=== PATIENT | male | born 1990 | race Hispanic/Latino ===

== ENCOUNTER 2024-10-26 18:06 | Emergency (ER) | payer SELFPAY ==
[2024-10-26 19:31] LABS: Absolute Lymphocytes (CBC) 1.6 K/uL (0.7-4.9); Absolute Monocytes 0.4 K/uL (0.1-1.3); Absolute Neutrophil 8.4 K/uL (1.8-8.0); Basophils % 0.2 % (0-1.3); Eosinophils % 0.3 % (0-4.4); Hematocrit 43.6 % (39.6-49.0); Hemoglobin 15.5 g/dL (13.6-17.9); Lymphocytes % 15.2 % (15.3-44.8); MCH 30.2 pg (27.0-35.0); MCHC 35.5 g/dL (32.0-36.0); MCV 85.1 fL (80-100); Monocytes % 3.9 % (3.3-12.3); Neutrophils % 80.4 % (41.7-73.7); Nucleated Red Blood Cells % 0.1 % (0-0); Platelets 355 thou/uL (152-406); RBC Red Blood Cell Count 5.12 M/uL (4.33-5.43); Red Cell Distribution Width 12.6 % (12.1-15.2)
[2024-10-26 19:33] LABS: Calcium Oxalate Crystals- Ur Few /HPF (None Seen); Specific Gravity 1.029 (1.005-1.030); Sqamous Epithelial <5 /HPF (None Seen); Urine Bacteria None Seen /HPF (<20); Urine Bilirubin NEGATIVE (Negative); Urine Blood 2+ (Negative); Urine Clarity Turbid (Clear); Urine Color Yellow (Yellow); Urine Culture Reflex Order NOT NEEDED; Urine Glucose NEGATIVE (Negative); Urine Ketones NEGATIVE (Negative); Urine Microscopic Reflex YN ORDER UMIC; Urine Mucus 1+ /HPF (None Seen); Urine Nitrite NEGATIVE (Negative); Urine Protein 1+ (Negative); Urine RBC 21-50 /HPF (None Seen); Urine Urobilinogen Normal (Normal); Urine WBC <5 /HPF (<5); Urine Yeast (Budding) Trace /HPF (None Seen)
[2024-10-26] MEDS ORDERED: MORPHINE 4 MG/ML SYR ONE (19:38)
[2024-10-26] MEDS ORDERED: NA CHLORIDE 0.9% 1,000 ML ONE (19:38)
[2024-10-26] MEDS ORDERED: METOCLOPRAMIDE 10 MG/2mL INJ ONE (19:38)
[2024-10-26 19:47] LABS: Albumin 3.6 g/dL (3.4-5.0); Albumin/Globulin Ratio 0.8 (1.1-1.8); Anion Gap 11.5 mEq/L (5.0-15.0); Bilirubin Total 0.5 mg/dL (0.2-1.0); Globulin 4.5 g/dL (2.3-3.5); Potassium 3.5 mEq/L (3.5-5.1); Protein, Total 8.1 g/dL (6.4-8.2)
--- NOTE | 2024-10-26 21:18 | RAD REPORT ---
EXAMINATION: CT ABDOMEN AND PELVIS WITHOUT CONTRAST CLINICAL INDICATION: Male, 34 years old.right flank pain TECHNIQUE: CT abdomen and pelvis was performed, without IV contrast, as per department protocol. Axia l, sagittal and coronal reconstructions were obtained. One or more of the following dose reduction techniques were used: Automated exposure control, adjustment of the mA and/or kV according to the pat ient size, and/or iterative reconstruction. Unless otherwise specified, incidental findings do not require dedicated imaging follow-up. [id number]. IV CONTRAST: Not administered. COMPARISON: None FINDINGS: The lack of intravenous contrast limits the sensitivity of this exam for evaluation of solid visceral organs, vascular structures, and retroperitoneum. LOWER CHEST: No acute process identified.No significant pericardial effusion. UPPER GI: No significant abnormality. LIVER: Hepatic steatosis, but otherwise unremarkable. GALLBLADDER/BILE DUCTS: No biliary ductal dilatation.? PANCREAS: No mass, ductal dilation, or luke-pancreatic fluid. SPLEEN: Unremarkable. ADRENALS: No adrenal masses. KIDNEYS AND URETERS: Horseshoe kidney with mild right-sided hydronephrosis of the right renal moiety. A 2 mm stone is present at the right UVJ.No suspicious renal masses within the limitations of a noncontrast CT. ABDOMINAL AORTA AND OTHER VESSELS: Normal caliber aorta and IVC. PERITONEUM: No abnormal free fluid. No free air. LYMPH NODES: No pathologic lymphadenopathy. ABDOMINAL WALL: Unremarkable SMALL BOWEL/COLON: Small bowel has normal course and caliber. No colonic wall thickening or pericolon ic inflammatory changes.Normal appendix. URINARY BLADDER: Underdistended but grossly unremarkable. REPRODUCTIVE ORGANS: No pathologic process. MUSCULOSKELETAL: No acute or suspicious osseous abnormality. ADDITIONAL FINDINGS: None. IMPRESSION: Horseshoe kidney with mild right-sided hydronephrosis of the right renal moiety secondary to a 2 mm s tone at the right UVJ.
--- NOTE | 2024-10-26 21:49 | EDPHYS ---
Physician Documentation [facility] Name: Joss Urbina Jr Age: 34 yrs Sex: Male : 1990 Arrival Date: 10/26/2024 Time: 18:06 Bed DX1 Private MD: ED Physician Isac Neely HPI: 10/26 18:45 This 34 yrs old Male presents to ER via Ambulatory with complaints of cp Vomiting, Flank Pain. 18:45 The patient presents with pain that is acute, with no known mechanism of injury. The cp symptoms are located in the right flank. The pain radiates to the right testicle. Onset: The symptoms/episode began/occurred suddenly, 2 hour(s) ago. Associated signs and symptoms: Pertinent positives: abdominal pain, nausea, Pertinent negatives: chest pain, constipation, dysuria, fever, active vomiting. Possible causes: kidney stone. Historical: - Allergies: 18:32 No Known Allergies; db - PMHx: 18:32 None; db - Immunization history:: Adult Immunizations unknown. - Infectious Disease History:: Denies. - Social history:: Smoking status: Patient denies any tobacco usage or history of. ROS: 18:50 Constitutional: Negative for body aches, chills, fever, cp 18:50 Eyes: Negative for injury, pain, redness, and discharge, cp 18:50 ENT: Negative for drainage from ear(s), ear pain, sore throat, difficulty swallowing, difficulty handling secretions, 18:50 Cardiovascular: Negative for chest pain, edema, palpitations, 18:50 Respiratory: Negative for cough, shortness of breath, wheezing, 18:50 Abdomen/GI: Positive for abdominal pain, nausea, Negative for diarrhea, constipation, active vomiting, 18:50 Back: Positive for flank pain, on the right, 18:50 : Negative for injury or acute deformity, difficulty urinating, 18:50 Neuro: Negative for altered mental status, headache, numbness, weakness, 18:50 All other systems are negative, Exam: 18:55 Constitutional: The patient appears in no acute distress, alert, awake, non-toxic, well cp developed, well nourished, obese, uncomfortable, 18:55 Head/Face: Normocephalic, atraumatic. cp 18:55 Eyes: Periorbital structures: appear normal, Conjunctiva: normal, no exudate, no injection, Sclera: no appreciated abnormality, Lids and lashes: appear normal, bilaterally, 18:55 ENT: External ear(s): are unremarkable, Nose: is normal, Mouth: Lips: moist, Oral mucosa: moist, Posterior pharynx: Airway: no evidence of obstruction, patent, 18:55 Chest/axilla: Inspection: normal, 18:55 Cardiovascular: Rate: normal, Rhythm: regular, 18:55 Respiratory: the patient does not display signs of respiratory distress, Respirations: normal, no use of accessory muscles, no retractions, labored breathing, is not present, Breath sounds: are clear throughout, no decreased breath sounds, no stridor, no wheezing, 18:55 Abdomen/GI: Inspection: abdomen appears normal, Bowel sounds: active, all quadrants, Palpation: soft, in all quadrants, mild abdominal tenderness, in the right upper quadrant and right lower quadrant, rebound tenderness, is not appreciated, involuntary guarding, is not appreciated, 18:55 Back: ROM is painful, with all movement, CVA tenderness, that is mild, is noted on the right, 18:55 Neuro: Gait: is steady, at a normal pace, without difficulty, Vital Signs: 18:31 BP 187 / 119; Pulse 76; Resp 16; Temp 97.7; Pulse Ox 96% ; Weight 113.4 kg; Height 5 db ft. 5 in. ; Pain 10/10; 22:05 BP 160 / 88; Pulse 80; Resp 18; Temp 98; Pulse Ox 100% on R/A; kj2 18:31 Body Mass Index 41.60 (113.40 kg, 165.1 cm) db 18:31 Pain Scale: Adult db MDM: 18:30 Medical Screening Exam initiated cp 21:47 Data reviewed: vital signs, nurses notes, lab test result(s), radiologic studies, CT cp scan, and as a result, I will discharge patient. 21:47 Differential diagnosis: fracture, sciatica, Herniated disc UTI, pyelonephritis, uti. I cp considered the following discharge prescriptions or medication management in the emergency department Medications were administered in the Emergency Department. See MAR. Counseling: I had a detailed discussion with the patient and/or guardian regarding the historical points, exam findings, and any diagnostic results supporting the discharge/admit diagnosis, lab results, radiology results, to return to the emergency department if symptoms worsen or persist or if there are any questions or concerns that arise at home. Response to treatment: the patient's symptoms have markedly improved after treatment, and as a result, I will discharge patient. 10/26 18:37 Order name: CBC with Diff; Complete Time: 19:55 cp 10/26 18:37 Order name: CMP; Complete Time: 19:55 cp 10/26 18:37 Order name: Lipase; Complete Time: 19:55 cp 10/26 18:37 Order name: Urinalysis w/ reflexes; Complete Time: 19:55 cp 10/26 18:37 Order name: CT Stone Protocol; Complete Time: 21:33 cp 10/26 18:37 Order name: IV Saline Lock; Complete Time: 19:43 cp 10/26 18:37 Order name: Labs collected and sent; Complete Time: 19:43 cp 10/26 21:34 Order name: PO challenge; Complete Time: 22:01 cp Administered Medications: 19:44 Drug: NS 0.9% IV 1000 ml IV at 1 bolus Per protocol; to be given as a bolus over 60 lg3 minutes Route: IV; Rate: 1 bolus; Site: right antecubital; 21:00 Follow up: Response: No adverse reaction; IV Status: Completed infusion; IV Intake: al5 1000ml 19:44 Drug: metoCLOPramide IVP 10 mg IVP once; over 1 to 2 minutes Route: IVP; Site: right lg3 antecubital; 22:09 Follow up: Response: No adverse reaction kj2 19:44 Drug: morphine IVP or IV 4 mg IVP once over 4 mins Route: IVP; Infused Over: 4 mins; lg3 Site: right antecubital; 22:09 Follow up: Response: No adverse reaction kj2 22:00 Drug: HYDROcodone-acetaminophen PO 10 mg-325 mg 1 tabs PO once Route: PO; kj2 22:09 Follow up: Response: No adverse reaction kj2 22:00 Drug: Flomax PO 0.4 mg PO once Route: PO; kj2 22:09 Follow up: Response: No adverse reaction kj2 22:01 Drug: Ketorolac IVP 15 mg IVP once Route: IVP; Site: right antecubital; kj2 22:09 Follow up: Response: No adverse reaction kj2 Disposition Summary: 10/26/24 21:48 Discharge Ordered Notes: Location: Home cp Problem: new cp Symptoms: have improved cp Condition: Stable cp Diagnosis - Calculus of ureter - right cp Followup: cp - With: Eduardo Mathias MD - When: 2 - 3 days - Reason: Worsening of condition Discharge Instructions: - Discharge Summary Sheet cp - Kidney Stones cp - Renal Colic cp Forms: - Medication Reconciliation Form cp - Antibiotic Education cp - Prescription Opioid Use cp - Patient Portal Instructions cp - Leadership Thank You Letter cp - Work release form rv1 Prescriptions: - Flomax 0.4 mg Oral capsule - take 1 capsule ORAL route every morning As needed; 7 capsule; Refills: 0, cp Product Selection Permitted - acetaminophen-codeine 300-30 mg Oral tablet - take 2 tablet ORAL route every 8 hours; 16 tablet; Refills: 0, Product cp Selection Permitted - Zofran 4 mg Oral Tablet - take 1 tablet ORAL route every 12 hours As needed; 20 tablet; Refills: 0, cp Product Selection Permitted Addendum: 10/29/2024 13:30 Co-signature as Attending Physician, Isac Neely MD I reviewed the patient's care r n provided by the Advanced Practice Provider and agree with the diagnosis and treatment plan. Signatures: Dispatcher [employer] EDIsac Chambers MD MD rn Page, Corey, PA PA cp Able, Lacie RN RN lg3 Rebekah Avendano RN RN db Danita Hess RN RN kj2 Hanna Hogan RN al5 Corrections: (The following items were deleted from the chart) 10/26 18:38 18:38 CBC+H.LAB.BRZ ordered. EDMS EDMS 18:38 18:38 COMPREHENSIVE METABOLIC PANEL+C.LAB.BRZ ordered. EDMS EDMS 18:38 18:38 LIPASE+C.LAB.BRZ ordered. EDMS EDMS 18:38 18:38 Urinalysis+U.LAB.BRZ ordered. EDMS EDMS 21:51 21:48 Calculus of kidney with calculus of ureter - right cp cp
--- NOTE | 2024-10-26 21:49 | ER ---
Nurse's Notes [facility] Name: Joss Urbina Jr Age: 34 yrs Sex: Male : 1990 Arrival Date: 10/26/2024 Time: 18:06 Bed DX1 Private MD: Diagnosis: Calculus of ureter-right Presentation: 10/26 18:31 Chief complaint: Patient states: RIGHT FLANK PAIN WITH NAUSEA/VOMTING X 2 HOURS. STATES db THINKS IS KIDNEYS. 18:31 Coronavirus screen: Client denies travel out of the [place] in the last 14 days. At this db time, the client does not indicate any symptoms associated with coronavirus-19. Ebola Screen: Patient negative for fever greater than or equal to 101.5 degrees Fahrenheit, and additional compatible Ebola Virus Disease symptoms Patient denies exposure to infectious person. Patient denies travel to an Ebola-affected area in the 21 days before illness onset. No symptoms or risks identified at this time. Initial Sepsis Screen: Does the patient meet any 2 criteria? No. Patient's initial sepsis screen is negative. Does the patient have a suspected source of infection? No. Patient's initial sepsis screen is negative. Risk Assessment: Do you want to hurt yourself or someone else? Patient reports no desire to harm self or others. Onset of symptoms was October 26, 2024. 18:31 Method Of Arrival: Ambulatory db 18:31 Acuity: OXANA 3 db Triage Assessment: 18:32 General: Appears in no apparent distress. uncomfortable, Behavior is calm, cooperative. db Pain: Denies pain. Complains of pain in right low back. Neuro: Level of Consciousness is awake, alert, obeys commands, Oriented to person, place, time, situation. Respiratory: Airway is patent Respiratory effort is even, unlabored, Respiratory pattern is regular, symmetrical. GI: Reports nausea, vomiting. Historical: - Allergies: 18:32 No Known Allergies; db - PMHx: 18:32 None; db - Immunization history:: Adult Immunizations unknown. - Infectious Disease History:: Denies. - Social history:: Smoking status: Patient denies any tobacco usage or history of. Screenin:45 [facility] ED Fall Risk Assessment (Adult) History of falling in the last 3 months, kj2 including since admission No falls in past 3 months (0 pts) Confusion or Disorientation No (0 pts) Intoxicated or Sedated No (0 pts) Impaired Gait No (0 pts) Mobility Assist Device Used No (0 pt) Altered Elimination No (0 pt) Score/Fall Risk Level 0 - 2 = Low Risk Maintained a safe environment, Hourly rounding (assess needs \T\ fall precautionary measures) done. Abuse screen: Denies threats or abuse. Denies injuries from another. Nutritional screening: No deficits noted. Tuberculosis screening: No symptoms or risk factors identified. Assessment: 21:40 General: Appears in no apparent distress. Behavior is calm, cooperative. Pain: kj2 Complains of pain in back and right low back Pain currently is 6 out of 10 on a pain scale. Neuro: Level of Consciousness is awake, alert, obeys commands, Oriented to person, place, time, situation. Cardiovascular: Patient's skin is warm and dry. GI: Reports vomiting. GI: Abdomen is non-distended. : No signs and/or symptoms were reported regarding the genitourinary system. Vital Signs: 18:31 BP 187 / 119; Pulse 76; Resp 16; Temp 97.7; Pulse Ox 96% ; Weight 113.4 kg; Height 5 db ft. 5 in. ; Pain 10/10; 22:05 BP 160 / 88; Pulse 80; Resp 18; Temp 98; Pulse Ox 100% on R/A; kj2 18:31 Body Mass Index 41.60 (113.40 kg, 165.1 cm) db 18:31 Pain Scale: Adult db ED Course: 18:09 Patient arrived in ED. im 18:18 Rodney Covington PA is PHCP. cp 18:18 Isac Neely MD is Attending Physician. cp 18:32 Triage completed. db 18:32 Arm band placed on. db 19:43 CMP Sent. vk 19:43 Lipase Sent. vk 19:43 Inserted saline lock: 20 gauge in right antecubital area, using aseptic technique. vk Blood collected. Flushed with 10 mL NS. 21:14 CT Stone Protocol In Process Unspecified. EDMS 21:45 Patient has correct armband on for positive identification. Adult w/ patient. Provided kj2 Education on: call light. 21:48 Eduardo Mathias MD is Referral Physician. cp 22:07 No provider procedures requiring assistance completed. IV discontinued, intact, kj2 bleeding controlled, No redness/swelling at site. Pressure dressing applied. Administered Medications: 19:44 Drug: NS 0.9% IV 1000 ml IV at 1 bolus Per protocol; to be given as a bolus over 60 lg3 minutes Route: IV; Rate: 1 bolus; Site: right antecubital; 21:00 Follow up: Response: No adverse reaction; IV Status: Completed infusion; IV Intake: al5 1000ml 19:44 Drug: metoCLOPramide IVP 10 mg IVP once; over 1 to 2 minutes Route: IVP; Site: right lg3 antecubital; 22:09 Follow up: Response: No adverse reaction kj2 19:44 Drug: morphine IVP or IV 4 mg IVP once over 4 mins Route: IVP; Infused Over: 4 mins; lg3 Site: right antecubital; 22:09 Follow up: Response: No adverse reaction kj2 22:00 Drug: HYDROcodone-acetaminophen PO 10 mg-325 mg 1 tabs PO once Route: PO; kj2 22:09 Follow up: Response: No adverse reaction kj2 22:00 Drug: Flomax PO 0.4 mg PO once Route: PO; kj2 22:09 Follow up: Response: No adverse reaction kj2 22:01 Drug: Ketorolac IVP 15 mg IVP once Route: IVP; Site: right antecubital; kj2 22:09 Follow up: Response: No adverse reaction kj2 Medication: 22:07 VIS not applicable for this client. kj2 Intake: 21:00 IV: 1000ml; Total: 1000ml. al5 Outcome: 21:48 Discharge ordered by . cp 22:08 Discharged to home ambulatory, kj2 22:08 Condition: stable 22:08 Discharge instructions given to patient, Instructed on discharge instructions, follow up and referral plans. Demonstrated understanding of instructions, 22:15 Patient left the ED. kj2 Signatures: Dispatcher [employer] EDMS Rodney Covington PA PA cp Able, Lacie, RN RN lg3 Rebekah Avendano RN RN Deja Jensen Vivian vk Langhorst, Amanda, RN RN al5 Danita Hess RN RN kj2
[2024-10-26] MEDS ORDERED: HYDROCODONE/APAP 10/325 TAB ONE (21:55)
[2024-10-26] MEDS ORDERED: KETOROLAC 30 MG/ML INJ ONE (21:55)
[2024-10-26] MEDS ORDERED: TAMSULOSIN 0.4 MG SR CAP ONE (21:55)
[2024-10-27 03:58] VITALS: BP 160/88; TEMP 98; O2SAT 100
== END 2024-10-26 22:15 | disposition home or self-care (01) ==
LOC: ER 18:06
DX: N20.1 Calculus of ureter (principal)
CPT/HCPCS: 36415; 74176; 76377; 80053; 81001; 83690; 85025; 96361; 96374; 96375; 99284; J2765; J7030